=== PATIENT | female | born 1985 | race Caucasian/White ===

== ENCOUNTER → 2018-04-22 16:05 | Observation (INO) ==
--- NOTE | 2018-04-22 13:39 | OB/GYN Progress Note ---
Date of Encounter: 04/22/18 Time of Encounter: 13:36 - Assessment and Plan (1) 31 weeks gestation of Current Visit: Yes Status: Acute Continue care as scheduled labor precautions given Discharge home (2) uterine contractions in third trimester, antepartum Current Visit: Yes Status: Acute Extended monitoring UA- dehydrated - 1L fluids given IV Vaginosis panel - +BV FFN - negative Subjective - Subjective Principal diagnosis: contractions Interval history: Ms. Mari is a 32-year-old at 31 weeks 4 days gestation who presents from the office with complaints of contractions since she was seen patient this morning. She reports a stopped between the office in arriving on the unit after she drank a large bottle of water. She endorses good movement and denies leakage of fluid and vaginal bleeding. Antepartum ROS: new complaints, movement normal, contractions, no loss of fluid, no vaginal bleeding Objective - Vital Signs Vital Signs: Intake and Output 04/21/18 04/22/18 04/22/18 23:59 07:59 15:59 Other: Weight 100.7 kg Patient Weight 04/22/18 23:59 Weight 100.7 kg - Exam FHR: category 2 FHR comments: Baseline 140 Moderate variability Accelerations present 10 x 10 Few variable decelerations FHR category II No activity on toco Auscultation: bilateral: normal Abdomen: Present: normal appearance, soft, gravid Uterus: Present: normal, firm
[2018-04-22 13:49] LABS: Bilirubin,Urine Small (Negative); Blood,Urine Negative (Negative); Clarity,Urine Clear (Clear); Color,Urine Yellow (Yellow); Glucose,Urine (UA) Normal (Normal); Ketones,Urine 15 mg/dL (Negative); Leukocyte Esterase,Urine Small (Negative); Nitrite,Urine Negative (Negative); Protein,Urine 30 mg/dL (Neg-Trace); Specific Gravity,Urine >= 1.030 (1.010-1.025); Urobilinogen,Urine Normal (Normal)
[2018-04-22 13:54] LABS: Squamous Epithelial Cell,Urine Many per lpf (None-Few)
[2018-04-22 13:55] LABS: Bacteria,Urine Many per hpf (None-Few); Renal Epithelial Cells,Urine Few per hpf (None-Few); WBC,Urine 15-30 per hpf (0-3)
[2018-04-22 13:56] LABS: Calcium Oxalate Crystals,Urine Present; RBC,Urine 0-3 per hpf (0-3)
[2018-04-22 14:19] LABS: Amphetamine Screen,Urine Negative ng/mL (Cutoff=1000); Barbiturate Screen,Urine Negative ng/mL (Cutoff=200); Benzodiazepines Screen,Urine Negative ng/mL (Cutoff=200); Cannabinoid Screen,Urine Negative ng/mL (Cutoff = 50); Cocaine Screen,Urine Negative ng/mL (Cutoff= 300); Opiate Screen,Urine Negative ng/mL (Cutoff=300); Phencyclidine Screen,Urine Negative ng/mL (Cutoff=25)
[2018-04-22 14:47] LABS: Candida DNA Not Detected (Not Detect); Gardnerella DNA ***DETECTED*** (Not Detect); Trichomonas DNA Not Detected (Not Detect)
[~2018-04-22 16:05] MED LIST: Ringers Solution, Lactated 1,000 ML IVC ONE; Ringers Solution, Lactated 1,000 ML ONE
== END | disposition home or self-care (01) ==
LOC: 1NENULAB
PROVIDERS: ADMIT Obstetrics & Gynecology; ATTEND Obstetrics & Gynecology

== ENCOUNTER → 2018-05-08 18:08 | Observation (INO) ==
[2018-05-08 13:42] LABS: Amphetamine Screen,Urine Negative ng/mL (Cutoff=1000); Barbiturate Screen,Urine Negative ng/mL (Cutoff=200); Benzodiazepines Screen,Urine Negative ng/mL (Cutoff=200); Cannabinoid Screen,Urine Negative ng/mL (Cutoff = 50); Cocaine Screen,Urine Negative ng/mL (Cutoff= 300); Opiate Screen,Urine Negative ng/mL (Cutoff=300); Phencyclidine Screen,Urine Negative ng/mL (Cutoff=25)
[2018-05-08 14:04] LABS: Bilirubin,Urine Negative (Negative); Blood,Urine Large (Negative); Clarity,Urine Cloudy (Clear); Color,Urine Yellow (Yellow); Glucose,Urine (UA) Normal (Normal); Ketones,Urine Trace mg/dL (Negative); Leukocyte Esterase,Urine Large (Negative); Nitrite,Urine Negative (Negative); PH,Urine 6.5 pH Units (5.0-8.0); Protein,Urine Negative (Neg-Trace); Specific Gravity,Urine 1.019 (1.010-1.025); Urobilinogen,Urine Normal (Normal)
[2018-05-08 14:07] LABS: Bacteria,Urine Few per hpf (None-Few); Hyaline Casts,Urine None Seen per lpf (None-Few); Squamous Epithelial Cell,Urine Many per lpf (None-Few); WBC,Urine 15-30 per hpf (0-3)
[2018-05-08 14:41] LABS: Candida DNA Not Detected (Not Detect); Gardnerella DNA Not Detected (Not Detect); Trichomonas DNA Not Detected (Not Detect)
--- NOTE | 2018-05-08 17:24 | OB/GYN Progress Note ---
Date of Encounter: 05/08/18 Time of Encounter: 17:21 - Assessment and Plan (1) 33 weeks gestation of Current Visit: Yes Status: Acute (2) Acute cystitis during in third trimester Current Visit: Yes Status: Acute (3) uterine contractions in third trimester, antepartum Current Visit: No Status: Acute Pt reports contractions are better than yesterday. They have improved with rest , terbutaline, and procardia in triage. She was also given rocephin IM for UTI. She has been on continuous flagyl for BV. Today we stopped the flagyl and started clindamycin. We will hold off on steroids at this time given closed cervix and the presence of GDMA2. Pt to follow-up as scheduled or return to L&D if contractions worsen. Discharge home with precautions. POC discussed with Dr. Rico and Dr. Garcia. (4) Gestational diabetes Current Visit: Yes Status: Acute Qualifiers: Gestational diabetes mellitus control: oral hypoglycemic-controlled Trimester: third trimester Qualified Code(s): O24.415 - Gestational diabetes mellitus in , controlled by oral hypoglycemic drugs Subjective - Subjective Interval history: 32 year-old presenting at 33w6d with c/o contractions. She reports contractions have been present for the last 2 weeks when she was diagnosed with BV. She reports they were more painful yesterday but not today. She was seen in the office and found to have contractions every 2 minutes on NST. This is complicated by GDMA2 for which she is taking metformin 1000mg BID. She denies any other complaints or complications today. Good FM. Antepartum ROS: vaginal bleeding (spotting), movement normal, contractions , no loss of fluid Objective - Vital Signs Vital Signs: Intake and Output 05/08/18 05/08/18 05/08/18 07:59 15:59 23:59 Other: Weight 100.9 kg Patient Weight 05/08/18 23:59 Weight 100.9 kg - Exam FHR: category 1 FHR comments: NST reactive Auscultation: bilateral: normal Abdomen: Present: soft, gravid Uterus: Absent: tenderness Cervical dilation: 0 Cervix effacement: 60 station: high - Labs Labs: Abnormal lab results Urine Clarity Cloudy (Clear) A 05/08/18 13:05 Urine Ketones Trace mg/dL (Negative) H 05/08/18 13:05 Urine Blood Large (Negative) H 05/08/18 13:05 Ur Leukocyte Esterase Large (Negative) H 05/08/18 13:05 Urine Microscopic RBC 3-5 per hpf (0-3) H 05/08/18 13:05 Urine Microscopic WBC 15-30 per hpf (0-3) H 05/08/18 13:05 Ur Squamous Epith Cells Many per lpf (None-Few) H 05/08/18 13:05 Ur Culture Indicated? NO. (NO) A 05/08/18 13:05
[~2018-05-08 18:08] MED LIST changes: +NIFEdipine 10 MG CAPSULE PO ONE; -Ringers Solution, Lactated 1,000 ML IVC ONE; -Ringers Solution, Lactated 1,000 ML ONE; +Terbutaline 1 MG/ML VIAL SQ ONE; +cefTRIAXone 500 MG VIAL IM ONE
== END | disposition home or self-care (01) ==
LOC: 1NENULAB
PROVIDERS: ADMIT Obstetrics & Gynecology; ATTEND Obstetrics & Gynecology

== ENCOUNTER → 2018-05-09 23:50 | Observation (INO) ==
[2018-05-09 21:10] LABS: Basophils # 0.1 K/mcL (0.0-0.2); Basophils % 0.4 %; Eosinophils # 0.2 K/mcL (0.0-0.6); Eosinophils % 1.8 %; Hematocrit 35.4 % (35.3-44.9); Hemoglobin 11.7 g/dL (11.5-15.4); Immature Granulocytes % 0.4 % (0-4); Lymphocytes % 25.6 %; Mean Corpuscular HGB Conc 33.1 g/dL (31.6-35.5); Mean Corpuscular Hemoglobin 28.1 pg (28.0-33.3); Mean Corpuscular Volume 84.9 fL (83.0-100.0); Mean Platelet Volume 9.5 fL (9.4-12.4); Monocytes # 0.9 K/mcL (0.0-1.3); Monocytes % 7.4 %; Neutrophils # 7.6 K/mcL (1.6-8.9); Platelet Count 388 K/mcL (140-400); Red Blood Count 4.17 M/mcL (3.82-4.97); Red Cell Distribution Width 14.6 % (11.5-14.5); Segmented Neutrophils % 64.4 %
[2018-05-09 21:13] LABS: Bilirubin,Urine Negative (Negative); Blood,Urine Small (Negative); Clarity,Urine Cloudy (Clear); Color,Urine Dark Yellow (Yellow); Glucose,Urine (UA) Normal (Normal); Ketones,Urine Trace mg/dL (Negative); Leukocyte Esterase,Urine Large (Negative); Nitrite,Urine Negative (Negative); PH,Urine 6.5 pH Units (5.0-8.0); Protein,Urine 30 mg/dL (Neg-Trace); Specific Gravity,Urine 1.018 (1.010-1.025); Urobilinogen,Urine Normal (Normal)
[2018-05-09 21:15] LABS: Bacteria,Urine None Seen per hpf (None-Few); Hyaline Casts,Urine None Seen per lpf (None-Few); Squamous Epithelial Cell,Urine Many per lpf (None-Few); WBC,Urine TNTC per hpf (0-3)
--- NOTE | 2018-05-09 22:13 | OB/GYN Progress Note ---
Date of Encounter: 05/09/18 Time of Encounter: 22:13 - Assessment and Plan (1) 34 weeks gestation of Current Visit: Yes Status: Acute (2) uterine contractions in third trimester, antepartum Current Visit: No Status: Acute Treated with 500ml LR bolus, 30 mg po nifedipine, contractions significantly decreased, cervix remain closed on follow up exam. Discussed with Dr. Garcia, discharged home with rx for nifedipine 10mg q6 PRN contractions, and labor precautions. Subjective - Subjective Interval history: 32 year-old presenting at 34 weeks gestation with c/o contractions. Patient seen in triage yesterday for contractions, treated for bacterial vaginosis and treated with nifedipine and terbutaline for contractions patient states nifedipine was most effective in stopping contractions last night. Patient states started about 1530 and increased throughout the evening. Reports good movement, denies vaginal bleeding or leaking of fluid. Antepartum ROS: movement normal, contractions, no loss of fluid, no vaginal bleeding Objective - Vital Signs Vital Signs: Intake and Output 05/09/18 05/09/18 05/09/18 07:59 15:59 23:59 Other: Weight 100.9 kg Patient Weight 05/09/18 23:59 Weight 100.9 kg - Exam FHR: auscultation normal, category 1 FHR comments: Baseline 135 Abdomen: Present: soft, gravid Cervical dilation: Closed per Dr. Garcia - Labs Labs: Abnormal lab results WBC 11.8 K/mcL (4.3-11.1) H 05/09/18 20:55 RDW 14.6 % (11.5-14.5) H 05/09/18 20:55 Urine Clarity Cloudy (Clear) A 05/09/18 20:56 Urine Protein 30 mg/dL (Neg-Trace) H 05/09/18 20:56 Urine Ketones Trace mg/dL (Negative) H 05/09/18 20:56 Urine Blood Small (Negative) H 05/09/18 20:56 Ur Leukocyte Esterase Large (Negative) H 05/09/18 20:56 Urine Microscopic RBC 5-15 per hpf (0-3) H 05/09/18 20:56 Urine Microscopic WBC TNTC per hpf (0-3) H 05/09/18 20:56 Ur Squamous Epith Cells Many per lpf (None-Few) H 05/09/18 20:56 Ur Culture Indicated? NO. (NO) A 05/09/18 20:56
[~2018-05-09 23:50] MED LIST changes: +Ringers Solution, Lactated 1,000 ML IVC ONE; +Ringers Solution, Lactated 1,000 ML IVC SCH; +Ringers Solution, Lactated 1,000 ML ONE; -Terbutaline 1 MG/ML VIAL SQ ONE; -cefTRIAXone 500 MG VIAL IM ONE
== END | disposition home or self-care (01) ==
LOC: 1NENULAB
PROVIDERS: ADMIT Obstetrics & Gynecology; ATTEND Obstetrics & Gynecology

== ENCOUNTER → 2018-06-08 11:34 | Observation (INO) ==
--- NOTE | 2018-06-13 19:28 | Discharge Summary ---
Date of Encounter: 06/08/18 Time of Encounter: 12:00 - Discharge Diagnosis (1) with 38 completed weeks gestation Priority: Primary Status: Chronic (2) Gestational diabetes Priority: Secondary Status: Chronic Qualifiers: Gestational diabetes mellitus control: oral hypoglycemic-controlled Trimester: third trimester Qualified Code(s): O24.415 - Gestational diabetes mellitus in , controlled by oral hypoglycemic drugs - Discharge Medications Home Medications: Buspirone HCl [Buspar] 15 mg PO BID 02/26/17 [History] Vit Calc,Iron,Folic [ Vitamins] 1 each PO DAILY 02/26/17 [ History] Sertraline [Zoloft] 50 mg PO BID 02/26/17 [History] Phenergan 12.5 mg PO PRN PRN 04/22/18 [History] Zofran ODT 8 mg PO PRN PRN 04/22/18 [History] Pepcid 20 tab PO BID 05/08/18 [History] metFORMIN 1,000 mg .ROUTE BID 05/08/18 [History] valACYclovir [Valtrex] PO BID 06/13/18 [History] Allergies/Adverse Reactions: 3 Allergy/AdvReac Type Severity Reaction Status Date / Time Sulfa (Sulfonamide Allergy See Verified 06/13/18 04:47 Antibiotics) Comments latex AdvReac See Verified 06/13/18 04:47 Comments Date of admission: 06/08/18 11:07 Primary care physician: Sylvie Gan CNP - Patient Status Disposition: Home, Self-Care Condition: Good Functional capacity at discharge: independent ambulation Overall status at discharge: patient is progressing back to baseline - Discharge Instructions Follow Up With: Sylvie Gan CNP [Primary Care Provider] - - Diet and Activity Activity: increase activity as tolerated Diet: diabetic diet Hospital Course COAT FITTER Time Attestation: Total time spent providing and/or coordinating discharge services: Exam - Constitutional General appearance IM: A&O X 3 - Respiratory Respiratory exam: Present: CTAB - Cardiovascular Cardiovascular exam IM: Present: RRR - GI/Abdominal GI/Abdominal exam IM: soft - Rectal Additional comments: /-1 - Other Additional findings: RNST - Attending Attestation DOMENICO WHELAN MD FACOG
== END | disposition home or self-care (01) ==
LOC: 1NENULAB
PROVIDERS: ADMIT Obstetrics & Gynecology; ATTEND Obstetrics & Gynecology

== ENCOUNTER 2018-06-13 04:00 | Inpatient (IN) ==
[2018-06-13] MEDS ORDERED: Famotidine 20 MG/2 ML VIAL IVP PRN (04:36)
[2018-06-13] MEDS ORDERED: Naloxone 0.4 MG/ML INJ IVP PRN (04:36)
[2018-06-13] MEDS ORDERED: miSOPROStol 25 MCG TABLET PO PRN (04:36)
[2018-06-13] MEDS ORDERED: *HR* Nalbuphine 10 MG/ML AMPUL IVP PRN (04:36)
[2018-06-13] MEDS ORDERED: Metoclopramide 10 MG/2 ML VIAL IVP PRN ×2 (04:36→23:31)
[2018-06-13] MEDS ORDERED: Ringers Solution, Lactated 1,000 ML IVC SCH (04:45)
[2018-06-13 05:03] LABS: Basophils # 0.1 K/mcL (0.0-0.2); Basophils % 0.5 %; Eosinophils # 0.6 K/mcL (0.0-0.6); Eosinophils % 4.5 %; Hematocrit 35.1 % (35.3-44.9); Hemoglobin 11.5 g/dL (11.5-15.4); Immature Granulocytes % 0.6 % (0-4); Lymphocytes # 3.4 K/mcL (0.6-4.6); Lymphocytes % 27.4 %; Mean Corpuscular HGB Conc 32.8 g/dL (31.6-35.5); Mean Corpuscular Hemoglobin 27.8 pg (28.0-33.3); Mean Platelet Volume 10.4 fL (9.4-12.4); Monocytes # 0.8 K/mcL (0.0-1.3); Monocytes % 6.5 %; Neutrophils # 7.4 K/mcL (1.6-8.9); Nucleated Red Blood Cells 0.2 /100 WBC (0); Platelet Count 374 K/mcL (140-400); Red Blood Count 4.13 M/mcL (3.82-4.97); Red Cell Distribution Width 15.2 % (11.5-14.5); Segmented Neutrophils % 60.5 %
[2018-06-13 05:25] LABS: Amphetamine Screen,Urine Negative ng/mL (Cutoff=1000); Barbiturate Screen,Urine Negative ng/mL (Cutoff=200); Benzodiazepines Screen,Urine Negative ng/mL (Cutoff=200); Cannabinoid Screen,Urine Negative ng/mL (Cutoff = 50); Cocaine Screen,Urine Negative ng/mL (Cutoff= 300); Opiate Screen,Urine Negative ng/mL (Cutoff=300); Phencyclidine Screen,Urine Negative ng/mL (Cutoff=25)
--- NOTE | 2018-06-13 07:08 | OB/GYN History & Physical ---
Date of Encounter: 06/17/18 Time of Encounter: 06:59 Assessment and Plan (1) 39 weeks gestation of Status: Acute (2) Cholelithiasis affecting , antepartum Status: Acute Denies current abdominal symptoms (3) Gestational diabetes Status: Chronic Admission glucose 95. Will monitor. Qualifiers: Gestational diabetes mellitus control: oral hypoglycemic-controlled Trimester: third trimester Qualified Code(s): O24.415 - Gestational diabetes mellitus in , controlled by oral hypoglycemic drugs (4) Encounter for planned induction of labor Status: Acute Admission for induction of labor Cytotec 50mcg po Nubain and epidural as desires Anticipate History of Present Illness Chief complaint: Induction of Labor HPI: Ms. Mari is a 32 year old female at 39weeks 1day presenting for induction of labor. PMHx of hyperemesis gravidarum currently managed with Phenergen, Zofran, Cholelithiasis, and Gestational DM managed with Metformin. Initially lost 20lbs due to hyperemesis gravidarum, but states she has gained 18lbs back. Notes control of symptoms currently aside from mild nausea. Reports good movement, occasional contractions prior to admission, denies vaginal bleeding or leaking of fluild. Estimated Gestational Weight - 8lbs 7oz on 06/11. Denies headache, blurry vision, congestion, chest pain, SOB. Labs: O+, Rubella and varicella immune, GSB negative, all other serologies negative Past Med Surg Social Fam HX - Past Medical History Source: patient (Cholelithiasis) Medical history: kidney stones, other Additional medical history: anxiety/depresssion Psychiatric history: anxiety, depression, PTSD - Past Surgical History Surgical History: other Additional surgical history: D&E - Social History Smoking Status: Never smoker Smokeless Tobacco Status: No Alcohol use: none Drug use: none - Family History Mother Family Member Ethnicity: Non- Living Status: Still Living Hx Family Cardiac Disorders: Yes (HTN) Hx Family Respiratory Disorders: No Hx Family Cancer: No Hx Family GI Disorders: No Hx Family Endocrine Disorder: No Hx Family Neuromuscular Disorders: No Hx Family Neurologic Disorders: No Hx Family HEENT Disorders: No Hx Family Autoimmune Disorders: No Obstetrical History - Pregnancies : 2 Para: 0 Term: 0 : 0 Ab's: 1 Livin Medications and Allergies Buspirone HCl [Buspar] 15 mg PO BID 02/26/17 [History] Vit Calc,Iron,Folic [ Vitamins] 1 each PO DAILY 02/26/17 [ History] Sertraline [Zoloft] 50 mg PO BID 02/26/17 [History] valACYclovir [Valtrex] PO BID 06/13/18 [History] Acetaminophen [Tylenol] 325 mg PO Q6HR PRN tablet 06/16/18 [Rx] Docusate [Colace] 100 mg PO BID #60 capsule 06/16/18 [Rx] Ferrous Sulfate 325 mg PO BIDWM #60 tablet 06/16/18 [Rx] Ibuprofen [Motrin] 600 mg PO Q6HR PRN #30 tablet 06/16/18 [Rx] OxyCODONE/APAP 5/325 [Percocet 5/325 MG] 1 each PO Q4HR PRN 5 Days #30 tablet [Rx] 3 Allergy/AdvReac Type Severity Reaction Status Date / Time Sulfa (Sulfonamide Allergy See Verified 06/13/18 04:47 Antibiotics) Comments latex AdvReac See Verified 06/13/18 04:47 Comments Review of System OB - Constitutional Constitutional ROS IM: no fatigue, no fever(s), no headache(s) - Cardiovascular Cardiovascular: no chest pain, no dyspnea, no lightheadedness, no palpitations - Respiratory Respiratory: no cough, no dyspnea - Gastrointestinal Gastrointestinal: nausea, no abdominal pain, no diarrhea, no vomiting - Neurological Nerological: no headache(s) Exam - Vital Signs Vital signs: VS reviewed and stable - Constitutional Constitutional: well developed, well nourished, no acute distress - HEENT HEENT: EOMI, PERRL - Neck Neck exam: full ROM - Lungs Respiratory exam: CTAB - Cardiovascular Cardiovascular exam: RRR, +S1, +S2 - Abdomen Abdomen: Present: bowel sounds normal, gravid, non tender - Extremities Extremities exam: normal capillary refill, normal inspection - Cervix Dilation: 3 (per RN) Effacement: 60 Station: -1 Results Result Diagrams: 06/14/18 05:14 06/13/18 04:30 Abnormal lab results WBC 12.2 K/mcL (4.3-11.1) H 06/13/18 04:30 Hct 35.1 % (35.3-44.9) L 08/02/18 04:30 MCH 27.8 pg (28.0-33.3) L 06/13/18 04:30 RDW 15.2 % (11.5-14.5) H 06/13/18 04:30 Nucleated RBCs/100 WBC 0.2 /100 WBC (0) H 06/13/18 04:30 All other labs normal. - VTE Reasons for not Prescribing Prophylaxis: Treatment not Indicated - Low risk for VTE - Attending Attestation The patient was seen and examined by myself. I reviewed the history and physical with the resident and agree with its contents.
--- NOTE | 2018-06-13 08:47 | Anesthesia Evaluation PreOp ---
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) anxiety, depression) Other Medical History: Renal (kidney stones in past), Other (gestational DM, hyperemesis lost 20lbs at start of preg gained 18 back.) Anesthesia History: Past Anesthesia (denies any family hx.) Alcohol Use: none Drug use: none Medications and Allergies Buspirone HCl [Buspar] 15 mg PO BID 02/26/17 [History] Vit Calc,Iron,Folic [ Vitamins] 1 each PO DAILY 02/26/17 [ History] Sertraline [Zoloft] 50 mg PO BID 02/26/17 [History] Phenergan 12.5 mg PO PRN PRN 04/22/18 [History] Zofran ODT 8 mg PO PRN PRN 04/22/18 [History] Pepcid 20 tab PO BID 05/08/18 [History] metFORMIN 1,000 mg .ROUTE BID 05/08/18 [History] valACYclovir [Valtrex] PO BID 06/13/18 [History] 3 Allergy/AdvReac Type Severity Reaction Status Date / Time Sulfa (Sulfonamide Allergy See Verified 06/13/18 04:47 Antibiotics) Comments latex AdvReac See Verified 06/13/18 04:47 Comments Anesthesia Results - Labs 06/13/18 04:30 06/13/18 04:30 Anesthesia Exam - HEENT Pupil (Motor): Pupils equal Mallampati: II Teeth: Normal Oral Opening: Greater than 3 - PROJECT ENG LOC: Oriented PROJECT ENG Motor: Normal RUE, Normal LUE, Normal RLE, Normal LLE, Normal Face PROJECT ENG Sensory: Normal: RUE, LUE, RLE, LLE, Face - Cardiac Rhythm: Regular Murmur: None - Pulmonary Breath Sounds: bilateral Clear Respiratory Effort: Symmetrical Anesthesia Assess/Plan ASA Score: 2 Modified Maria A Scale for Level of Consciousness: Cooperative, oriented, and tranquil Anesthetic Plan: General, Regional Monitoring Plan: Standard Monitors Recovery Plan: PACU
[2018-06-13] MEDS ORDERED: EPHEDrine 50 MG/ML VIAL IVP PRN (08:48)
[2018-06-13] MEDS ORDERED: Epidural Premix (fent/bupiv) 110 ML EP SCH (09:00)
--- NOTE | 2018-06-13 09:25 | OB Labor Progress Note ---
Date of Encounter: 06/13/18 Time of Encounter: 09:23 Labor Progress Note - Subjective Subjective: Pt currently comfortable and reporting no complaints. - Cervix Cervix: 3/60/-1 - Heart Tones Heart Tones: Category 1 heart tracing. FHR baseline 120 - Plan Plan: Patient was examined by myself. I have reviewed this note and agree with its contents. Discussed management with patient. Will start pitocin 4 hrs after Cytotec dose.
[2018-06-13] MEDS ORDERED: Oxytocin 20 units/ LR 1000 mL 20 UNIT/1,000 ML BAG IVC SCH ×2 (09:30→23:45)
[2018-06-13] MEDS ORDERED: Lidocaine -MPF 2% 5 ML VIAL ONE (09:50)
[2018-06-13] MEDS ORDERED: Epidural Premix (fent/bupiv) 110 ML EP ONE (10:40)
--- NOTE | 2018-06-13 15:09 | Anesthesia Procedures ---
Date of Encounter: 06/13/18 Time of Encounter: 13:58 Procedures: Anesthesia - Epidural/Spinal Patient ID/Chart reviewed: Yes Patient examined: Yes OB Eval: Gestational age: term OB Eval: : 2 OB Eval: Hx Para: 0 OB Eval: Contractions: Non-stressed pattern Consent Obtained: Yes Supplemental Oxygen: None/Room Air Site Prep: Aseptic Technique, Sterile prep and drape, 0.5% Chlorhexidine/Alcohol Patient position: upright Local Anesthetic: Lidocaine 1% Amount of Local Anesthetic used: 2 Touhy Needle Gauge: 18 Touhy Needle Depth (cm): 7 Catheter Depth at Skin (cm): 12 Test Dose (1.5% Lido + Epi): Volume given (mls): 3 Test Dose Result: Negative Loading Dose: Other: 10ml from solution Loading Dose Administered: Thru Catheter Infusion Med: 0.125% Bupivacaine w/ 2 mcg/ml Fentanyl Infusion Rate (mls/hr): [address]: Tegaderm, Tape Interspace Used: L3-L4 Loss of Resistance (JOCELYN): Yes (saline) Blood: No CSF: No Paresthesia: No Procedure: vss though out procedure, FHR stable per RN's
--- NOTE | 2018-06-13 15:56 | OB Labor Progress Note ---
Date of Encounter: 06/13/18 Time of Encounter: 15:55 Labor Progress Note - Subjective Subjective: Pt comfortable with epidural - Heart Tones Heart Tones: 120/moderate/+accels/decels - Susank Susank: 3-4 - Plan Plan: Continue to increase pitocin per policy Frequent repositoning Anticipate
[2018-06-13] MEDS ORDERED: 0.9 % Sodium Chloride 1,000 ML ONE (21:33)
[2018-06-13] MEDS ORDERED: Lidocaine/EPI 1:200k 2% PF 20 ML VIAL ONE (21:45)
[2018-06-13] MEDS ORDERED: Ringers Solution, Lactated 1,000 ML ONE (21:46)
[2018-06-13] MEDS ORDERED: *HR* FentaNYL (PF) 100 MCG/2 ML VIAL ONE (21:47)
--- NOTE | 2018-06-13 21:55 | OB Labor Progress Note ---
Date of Encounter: 06/13/18 Time of Encounter: 21:53 Labor Progress Note - Subjective Subjective: Pt having variable decelerations on Heart Tracing. Counseled patient and family on management options. Pt desires to proceed with Cesarian Section. Risks and benefits discussed. - Cervix Cervix: 8-9/90/-1 - Heart Tones Heart Tones: Category 1 tracing. FHR baseline 120 - Interventions Interventions: Will proceed with primary elective Cesarian Section - Plan Plan: Will proceed with primary elective Cesarian Section
[2018-06-13] MEDS ORDERED: *HR* Oxytocin 10 UNIT/ML VIAL IM ONE (22:22)
[2018-06-13] MEDS ORDERED: Morphine Sulfate/PF 5mg/10mL Vial ONE (22:29)
[2018-06-13] MEDS ORDERED: Ondansetron 4 MG/2 ML VIAL ONE (22:51)
[2018-06-13] MEDS ORDERED: *HR* Promethazine 25 MG/ML VIAL IVP PRN (23:23)
[2018-06-13] MEDS ORDERED: *HR* HYDROmorphone (PF) 1 MG/ML SYRINGE IVP PRN (23:23)
[2018-06-13] MEDS ORDERED: Acetaminophen IV 1,000 MG/100 ML INFUS..BTL IVPB ONE (23:23)
--- NOTE | 2018-06-13 23:28 | OB/GYN Procedure Note ---
Section - Date of procedure: 06/13/18 Preop diagnosis: category 2 FHT tracing Post-op diagnosis: same Procedure: section Surgeon: Jaydon Garcia Quantitated Blood Loss: 600 Was there an child center assistant present: Yes Optician: Leona Dawkins Anesthesiologist: Logan Bennett Anesthesia Type: Epidural section complications: none Disposition: PACU Specimens: Placenta, Cord blood - Infant (s) A Infant Delivery Date: 06/13/18 Infant Delivery Time: 22:35 Presentation: vertex Position: NITZA Gender: Female Viability: Viable Pounds: 7 Ounces: 8 Gram Weight: 3395 kg at 1 minute: 9 at 5 minutes: 9 Shoulder Dystocia: not encountered Specimens collected: cord blood Placenta: complete extraction Cord: 3 umbilical vessels - Narrative Narrative: Patient was taken to the operating room. After satisfactory epidural anesthesia was achieved, patient placed in supine position, and prepped and draped in usual manner. After appropriate timeout, abdomen was entered through standard Maylard incision. The Margaret retractor was placed. The peritoneum overlying the lower uterine segment was incised in U-shaped fashion. Uterine cavity was entered sharply extended laterally. Fluid was clear. The umbilical cord was noted to be anteriorly located between the infant between her shoulders and the pubic symphysis explaining the category 2 heart tracing. With fundal pressure, the head was delivered. suctioned upon delivery of the head. The remainder of the infant was delivered. The umbilical cord doubly clamped and cut and the was handed to nursery staff for further evaluation. Placenta was removed. Uterus was closed with 3- 0 Monocryl. After assurance of hemostasis, the retractor was removed. All members of the operative team changed their gloves. The abdomen was closed standard fashion using a 0 PDS on the fascia and 3-0 Monocryl in the skin. Sterile dressing was applied. Patient did well was taken to recovery room in satisfactory condition. Counts were correct.
[2018-06-13] MEDS ORDERED: Ibuprofen 600 MG TABLET PO PRN (23:31)
[2018-06-13] MEDS ORDERED: Sennosides 8.6 MG TABLET PO PRN (23:31)
[2018-06-13] MEDS ORDERED: *HR* OxyCODONE/APAP 5/325 TABLET PO PRN (23:31)
[2018-06-13] MEDS ORDERED: Simethicone 80 MG TAB.CHEW PO PRN (23:31)
[2018-06-13] MEDS ORDERED: Acetaminophen 325 MG TABLET PO PRN (23:31)
[2018-06-13] MEDS ORDERED: Ondansetron 4 MG/2 ML VIAL IVP PRN (23:31)
[2018-06-13] MEDS ORDERED: *HR* Promethazine 25 MG/ML VIAL ONE (23:51)
--- NOTE | 2018-06-14 00:38 | Anesthesia Evaluation Post Op ---
Date of Encounter: 06/14/18 Time of Encounter: 00:34 - Vital Signs Vital Signs: vss - Lungs Lungs: Clear Ascult./Percussion - Airway Airway: Non-obstructed - Mental Status Mental Status: Alert & Oriented, Answers Appropriately - Pain Pain Scale used: Katie (Faces) - Nausea Vomiting Nausea Vomiting: Not Present - Hydration Hydration: Esparza catheter - Discharge PostOp Status: Transfer Patient to floor
[2018-06-14] MEDS ORDERED: Sennosides 8.6 MG TABLET PO PRN (01:46)
[2018-06-14] MEDS ORDERED: Simethicone 80 MG TAB.CHEW PO PRN (01:46)
[2018-06-14] MEDS ORDERED: Oxytocin 20 units/ LR 1000 mL 20 UNIT/1,000 ML BAG IVC SCH ×2 (01:46)
[2018-06-14] MEDS ORDERED: *HR* OxyCODONE/APAP 5/325 TABLET PO PRN (01:46)
[2018-06-14] MEDS ORDERED: *HR* HYDROmorphone (PF) 1 MG/ML SYRINGE IVP PRN (01:46)
[2018-06-14] MEDS ORDERED: Ondansetron 4 MG/2 ML VIAL IVP PRN (01:46)
[2018-06-14] MEDS ORDERED: *HR* Promethazine 25 MG/ML VIAL IVP PRN (01:46)
[2018-06-14] MEDS ORDERED: Acetaminophen 325 MG TABLET PO PRN (01:46)
[2018-06-14 05:47] LABS: Basophils # 0.1 K/mcL (0.0-0.2); Basophils % 0.3 %; Eosinophils # 0.1 K/mcL (0.0-0.6); Eosinophils % 0.3 %; Hematocrit 28.3 % (35.3-44.9); Immature Granulocytes % 0.4 % (0-4); Lymphocytes # 2.4 K/mcL (0.6-4.6); Lymphocytes % 15.6 %; Mean Corpuscular HGB Conc 32.9 g/dL (31.6-35.5); Mean Corpuscular Hemoglobin 27.9 pg (28.0-33.3); Monocytes # 0.7 K/mcL (0.0-1.3); Monocytes % 4.8 %; Neutrophils # 11.8 K/mcL (1.6-8.9); Platelet Count 270 K/mcL (140-400); Red Blood Count 3.33 M/mcL (3.82-4.97); Red Cell Distribution Width 15.6 % (11.5-14.5); Segmented Neutrophils % 78.6 %
[2018-06-14 05:49] LABS: Hemoglobin 9.3 g/dL (11.5-15.4)
[2018-06-14] MEDS: Prenatal Vit/FA 1 EACH TABLET PO SCH (08:01)
[2018-06-14] MEDS ORDERED: Prenatal Vit/FA 1 EACH TABLET PO SCH (09:00)
--- NOTE | 2018-06-14 09:11 | OB/GYN Progress Note ---
Date of Encounter: 06/14/18 Time of Encounter: 09:08 - Assessment and Plan (1) 39 weeks gestation of Current Visit: Yes Status: Acute Patient to continue 48 hour s/p monitoring. Plan of care was discussed with patient and patient is in agreement with this plan and understanding of precautions. Subjective - Subjective Principal diagnosis: S/P at 39 weeks + 1 days Interval history: Patient is afebrile. Patient denies headache, vision change, chest pain, shortness of breath, patient admits to some degree of tenderness at the incision site but states that pain is well-controlled. Patient reports: appetite normal, voiding normally, pain well controlled, ambulating normally [place]: doing well, nursing well Objective - Vital Signs Latest vital signs: Vital Signs Temp Pulse Resp BP Pulse Ox 06/14/18 07:52 98.8 F 79 14 109/72 95 06/14/18 04:35 98.6 F 74 16 111/72 94 06/14/18 03:35 98.3 F 82 16 109/70 96 06/14/18 02:35 98.2 F 72 16 108/70 96 06/14/18 02:05 98.0 F 73 16 102/63 96 06/14/18 01:35 98.1 F 69 16 110/70 97 Intake and Output 06/13/18 06/14/18 06/14/18 23:59 07:59 15:59 Output Total 450 / 450 450 / 450 Balance -450 / -450 -450 / -450 Output: Catheter 450 / 450 450 / 450 Other: Weight 99.9 kg Patient Weight 06/14/18 23:59 Weight 99.9 kg - Exam Lungs: bilateral: normal Chest: Normal S1, Normal S2 Extremities: Present: normal Abdomen: Present: normal appearance, soft. Absent: rigidity, distention, tenderness Incision: Present: dry, intact, other (Dressing clean, dry and intact. There is no evidence of erythema, exudate or swelling of the skin around the incision site. ), dressed. Absent: erythematous Uterus: Present: normal, firm. Absent: bogginess, tenderness Fundal Height: 0 (u/u) - Labs Labs: Laboratory Results - last 24 hr 06/14/18 05:14 WBC 15.1 H RBC 3.33 L Hgb 9.3 L D Hct 28.3 L MCV 85.0 MCH 27.9 L MCHC 32.9 RDW 15.6 H Plt Count 270 MPV 10.0 Immature Gran % 0.4 Seg Neutrophils % 78.6 Lymphocytes % 15.6 Monocytes % 4.8 Eosinophils % 0.3 Basophils % 0.3 Neutrophils # 11.8 H Lymphocytes # 2.4 Monocytes # 0.7 Eosinophils # 0.1 Basophils # 0.1
[2018-06-14] MEDS: Ibuprofen 600 MG TABLET PO PRN ×2 (10:09→21:21)
[2018-06-15] MEDS: Ibuprofen 600 MG TABLET PO PRN ×2 (06:25→16:52)
[2018-06-15] MEDS: Prenatal Vit/FA 1 EACH TABLET PO SCH (08:50)
--- NOTE | 2018-06-15 09:50 | OB/GYN Progress Note ---
Date of Encounter: 06/15/18 Time of Encounter: 09:30 - Assessment and Plan (1) Status post primary low transverse section Current Visit: Yes Status: Acute Continue routine pp care Plan to d/c home tomorrow (2) Breast feeding status of mother Current Visit: Yes Status: Acute help prn (3) anemia Current Visit: Yes Status: Acute Increase iron to bid Subjective - Subjective Principal diagnosis: s/p PLTCS Interval history: Feeling well. Pain well controlled with PO pain meds. poorly. OOB without dizziness. Voiding independently. Passing flatus, but no BM yet. Patient reports: appetite normal, voiding normally, pain well controlled, ambulating normally : doing well, nursing well (Not nursing well) Objective - Vital Signs Latest vital signs: Vital Signs Temp Pulse Resp BP Pulse Ox 06/14/18 21:10 98.4 F 77 20 104/70 95 06/14/18 17:00 97.5 F L 77 18 109/65 95 06/14/18 11:29 98.0 F 94 18 98/69 95 Intake and Output 06/14/18 06/15/18 06/15/18 23:59 07:59 15:59 Intake Total 840 / 840 200 / 200 Output Total 900 / 900 650 / 650 Balance -60 / -60 -450 / -450 Intake: Oral 240 / 240 200 / 200 Free Water 600 / 600 Output: Urine 900 / 900 650 / 650 Other: Meal Dinner Percent of Meal Consumed 100% Weight 98.566 kg Patient Weight 06/15/18 23:59 Weight 98.566 kg - Exam Lungs: bilateral: normal Chest: Normal S1, Normal S2 Extremities: Present: normal Abdomen: Present: normal appearance, soft Incision: Present: normal, dry, dressed Uterus: Present: normal, firm Fundal Height: 0 (midline)
[2018-06-16] MEDS: Ibuprofen 600 MG TABLET PO PRN ×2 (02:16→08:20)
[2018-06-16] MEDS: Prenatal Vit/FA 1 EACH TABLET PO SCH (08:20)
[2018-06-16 09:06] VITALS: BP 117/74
--- NOTE | 2018-06-16 10:12 | Discharge Summary ---
Date of Encounter: 06/16/18 Time of Encounter: 10:06 - Discharge Diagnosis (1) Status post primary low transverse section Priority: Primary Status: Acute Comments: Pain well controlled with by mouth pain meds Vital signs stable Ambulating independently Tolerating regular diet Voiding independently Passing flatus, no BM yet Lochia light Discharge home today (2) Breast feeding status of mother Priority: Secondary Status: Acute Comments: Community resources provided (3) anemia Priority: Secondary Status: Acute Comments: Increase iron supplementation to twice daily - Discharge Medications Prescriptions: OxyCODONE/APAP 5/325 [Percocet 5/325 MG] 1 each PO Q4HR PRN 5 Days #30 tablet PRN Reason: Moderate pain 4-6 Ibuprofen [Motrin] 600 mg PO Q6HR PRN #30 tablet PRN Reason: Cramping Docusate [Colace] 100 mg PO BID #60 capsule Ferrous Sulfate 325 mg PO BIDWM #60 tablet Home Medications: Buspirone HCl [Buspar] 15 mg PO BID 02/26/17 [History] Vit Calc,Iron,Folic [ Vitamins] 1 each PO DAILY 02/26/17 [ History] Sertraline [Zoloft] 50 mg PO BID 02/26/17 [History] valACYclovir [Valtrex] PO BID 06/13/18 [History] Acetaminophen [Tylenol] 325 mg PO Q6HR PRN tablet 06/16/18 [Rx] Docusate [Colace] 100 mg PO BID #60 capsule 06/16/18 [Rx] Ferrous Sulfate 325 mg PO BIDWM #60 tablet 06/16/18 [Rx] Ibuprofen [Motrin] 600 mg PO Q6HR PRN #30 tablet 06/16/18 [Rx] OxyCODONE/APAP 5/325 [Percocet 5/325 MG] 1 each PO Q4HR PRN 5 Days #30 tablet [Rx] Allergies/Adverse Reactions: 3 Allergy/AdvReac Type Severity Reaction Status Date / Time Sulfa (Sulfonamide Allergy See Verified 06/13/18 04:47 Antibiotics) Comments latex AdvReac See Verified 06/13/18 04:47 Comments Data Procedures and tests throughout hospitalization: Laboratory Tests 06/13/18 06/13/18 06/13/18 04:30 04:30 04:30 WBC 12.2 H RBC 4.13 Hgb 11.5 Hct 35.1 L MCV 85.0 MCH 27.8 L MCHC 32.8 RDW 15.2 H Plt Count 374 MPV 10.4 Immature Gran % 0.6 Seg Neutrophils % 60.5 Lymphocytes % 27.4 Monocytes % 6.5 Eosinophils % 4.5 Basophils % 0.5 Neutrophils # 7.4 Lymphocytes # 3.4 Monocytes # 0.8 Eosinophils # 0.6 Basophils # 0.1 Nucleated RBCs/100 WBC 0.2 H Glucose 95 POC Glucose Urine Opiates Screen Negative Ur Barbiturates Screen Negative Ur Phencyclidine Scrn Negative Ur Amphetamines Screen Negative U Benzodiazepines Scrn Negative Urine Cocaine Screen Negative U Marijuana (THC) Screen Negative Ur Drug Screen Interp See Below 06/14/18 06/15/18 05:14 20:28 WBC 15.1 H RBC 3.33 L Hgb 9.3 L D Hct 28.3 L MCV 85.0 MCH 27.9 L MCHC 32.9 RDW 15.6 H Plt Count 270 MPV 10.0 Immature Gran % 0.4 Seg Neutrophils % 78.6 Lymphocytes % 15.6 Monocytes % 4.8 Eosinophils % 0.3 Basophils % 0.3 Neutrophils # 11.8 H Lymphocytes # 2.4 Monocytes # 0.7 Eosinophils # 0.1 Basophils # 0.1 Nucleated RBCs/100 WBC Glucose POC Glucose 92 Urine Opiates Screen Ur Barbiturates Screen Ur Phencyclidine Scrn Ur Amphetamines Screen U Benzodiazepines Scrn Urine Cocaine Screen U Marijuana (THC) Screen Ur Drug Screen Interp Labs on day of discharge: Labs from last 24 hours 06/15/18 20:28 POC Glucose 92 Date of admission: 06/13/18 04:11 Primary care physician: Sylvie Gan CNP Discharging clinician: Aicha Gallego Anticipated date of discharge: 06/16/18 - Patient Status Disposition: Home, Self-Care Condition: Good Functional capacity at discharge: independent ambulation Overall status at discharge: patient is progressing back to baseline - Discharge Instructions Follow Up With: Jaydon Garcia MD [Partnered Physician] - 06/28/18 10:35 am - Diet and Activity Activity: increase activity as tolerated Diet: regular diet Hospital Course Procedures: s/p PLTCS Reason for admission: induction of labor, IUP at term Delivery: section Episiotomy: none Laceration: none Other procedures: none complications: none Discharge diagnosis: IUP at term delivered [place] baby: female Time Attestation: Total time spent providing and/or coordinating discharge services: Time Spent: Less than 30 minutes - VTE Reasons for not Prescribing Prophylaxis: Treatment not Indicated - Low risk for VTE Documentation of Mechanical Device: Intermittent pneumatic compression device Exam - Constitutional Vitals: Temp Pulse Resp BP Pulse Ox 98.2 F 74 16 117/74 96 06/16/18 09:05 06/16/18 09:05 06/16/18 09:05 06/16/18 09:05 06/16/18 09:05 General appearance IM: A&O X 3 - Respiratory Respiratory exam: Present: CTAB - Cardiovascular Cardiovascular exam IM: Present: RRR, +S1, +S2 - GI/Abdominal GI/Abdominal exam IM: normal bowel sounds, no peritoneal signs Incision: normal, dry, dressed - Rectal Rectal exam: deferred - Uterine Tone: Firm Uterus Position: At Umbilicus, Midline - Extremities Exam Extremities exam IM: Present: normal capillary refill, normal inspection, radial pulses palpable and symmetrical - Neurological Exam Neurological exam: alert, CN II-XII intact, normal gait, oriented X3, reflexes normal, no focal deficits, strengths equal and symetr throughout - Psychiatric Additional comments: Signs and symptoms of PPD discussed with patient and family and both verbalize understanding of when to call for help.
== END 2018-06-16 11:35 | disposition home or self-care (01) | DRG 766 ==
LOC: 1NENULAB 04:11 → 1NENUOBS 06-14 01:45
PROVIDERS: ADMIT Obstetrics & Gynecology; ATTEND Obstetrics & Gynecology